=== PATIENT | female | born 1995 | race Two or more races ===

== ENCOUNTER 2019-07-08 19:11 | Outpatient (CLI) | payer OTHER ==
[2019-07-08] MEDS ORDERED: PRENATAL TABLE1 EAC1 PO (19:29)
[2019-07-08] MEDS ORDERED: FOLIC ACID20 MG PO (19:30)
== END 2019-07-08 22:25 | disposition home or self-care (01) ==
LOC: OBS/DEL 19:11
DX: O26.892 Other specified pregnancy related conditions, second trimester (principal); N89.8 Other specified noninflammatory disorders of vagina

== ENCOUNTER 2019-09-01 16:34 | Outpatient (CLI) | payer OTHER ==
[~2019-09-01 16:34] MED LIST: FOLIC ACID20 MG PO; PRENATAL TABLE1 EAC1 PO
== END 2019-09-02 11:51 ==
LOC: OBS/DEL 16:34
DX: O26.893 Other specified pregnancy related conditions, third trimester (principal); J06.9 Acute upper respiratory infection, unspecified

== ENCOUNTER 2019-11-13 06:07 | Inpatient (IN) | payer OTHER ==
[~2019-11-13] VITALS: Ht 154.9 cm; Wt 3.2 kg
== END 2019-11-16 14:27 | disposition home or self-care (01) | DRG 788 ==
LOC: LDR 06:07 → OB/GYN 06:07 → O/R 13:35 → OB/GYN 16:31
PROVIDERS: ADMIT Obstetrics & Gynecology
PROC: 3E033VJ Introduction of Other Hormone into Peripheral Vein, Percutaneous Approach (ICD-10-PCS; 2019-11-13)
PROC: 4A1HXCZ Monitoring of Products of Conception, Cardiac Rate, External Approach (ICD-10-PCS; 2019-11-13)
PROC: 10D00Z1 Extraction of Products of Conception, Low, Open Approach (ICD-10-PCS; principal; 2019-11-13 12:00)
DX: O64.8XX0 Obstructed labor due to other malposition and malpresentation, not applicable or unspecified (principal); Z3A.39 39 weeks gestation of pregnancy; Z37.0 Single live birth

== ENCOUNTER 2019-11-18 22:12 | Emergency (ER) | payer OTHER ==
[~2019-11-18] VITALS: Ht 154.9 cm; Wt 68.0 kg
[2019-11-19] MEDS ORDERED: PERCOCET 5-3251 EACH PO (01:41)
== END 2019-11-19 04:11 ==
LOC: ER 22:12
DX: O90.89 Other complications of the puerperium, not elsewhere classified (principal); G89.18 Other acute postprocedural pain

== ENCOUNTER 2021-09-16 09:52 | Outpatient (CLI) | payer OTHER ==
[~2021-09-16 09:52] MED LIST changes: +PERCOCET 5-3251 EACH PO
== END 2021-09-16 11:35 | disposition home or self-care (01) ==
LOC: PRENATAL 09:52
PROVIDERS: ATTEND Obstetrics & Gynecology Maternal & Fetal Medicine
DX: O35.0XX0 Maternal care for (suspected) central nervous system malformation in fetus, not applicable or unspecified (principal); O99.891 Other specified diseases and conditions complicating pregnancy; O35.3XX0 Maternal care for (suspected) damage to fetus from viral disease in mother, not applicable or unspecified

== ENCOUNTER 2021-11-03 09:49 | Outpatient (CLI) | payer OTHER | END 2021-11-03 10:39 | disposition home or self-care (01) | LOC: PRENATAL 09:49 | PROVIDERS: ATTEND Obstetrics & Gynecology Maternal & Fetal Medicine | DX: O26.849 Uterine size-date discrepancy, unspecified trimester (principal); O99.280 Endocrine, nutritional and metabolic diseases complicating pregnancy, unspecified trimester; Z3A.28 28 weeks gestation of pregnancy ==

== ENCOUNTER 2022-01-06 08:02 | Inpatient (IN) | payer OTHER ==
[~2022-01-06] VITALS: Ht 154.9 cm; Wt 83.5 kg
[2022-01-06] MEDS ORDERED: LEVOTHYROXINE25 MCG PO (08:17)
[2022-01-13] MEDS ORDERED: PRENATAL CAPLE1 EAC1 PO (06:46)
== END 2022-01-15 14:05 | disposition home or self-care (01) | DRG 788 ==
LOC: O/R 01-13 07:06 → OB/GYN 01-13 09:15
PROVIDERS: ADMIT Obstetrics & Gynecology; ATTEND Obstetrics & Gynecology
PROC: 4A1HXCZ Monitoring of Products of Conception, Cardiac Rate, External Approach (ICD-10-PCS; 2022-01-13)
PROC: 10D00Z1 Extraction of Products of Conception, Low, Open Approach (ICD-10-PCS; principal; 2022-01-13 11:15)
DX: O34.211 Maternal care for low transverse scar from previous cesarean delivery (principal); Z3A.39 39 weeks gestation of pregnancy; Z37.0 Single live birth; Z20.822 Contact with and (suspected) exposure to COVID-19